=== PATIENT | female | born 1965 | race Caucasian/White ===

== ENCOUNTER 2017-08-09 12:03 | Emergency (ER) | payer BC ==
[2017-08-09] MEDS ORDERED: NS 0.9% 1000 ML* 3,000 ML IV ONE (13:58)
[2017-08-09] MEDS ORDERED: Vancomycin(*) 1,500 MG in NS 0.9% 250 ML* 250 ML IVPB ONE (13:58)
[2017-08-09] MEDS ORDERED: cefTRIAXone(*) 1 GM in NS 0.9% 50 ML* 50 ML IVPB ONE (13:59)
[2017-08-09] MEDS ORDERED: Ketorolac INJ* 30 MG/ML 1 ML VIAL IV PUSH ONE (13:59)
[2017-08-09] MEDS ORDERED: Morphine INJ* 4 MG/ML 1 ML CARPUJECT IV ONE ×2 (13:59→17:56)
[2017-08-09 14:25] LABS: ABS Basophils 0.1 10^3/ul (0-0.2); ABS Eosinophils 0 10^3/ul (0-0.6); ABS Monocytes 0.5 10^3/ul (0-0.8); ABS Neutrophils 4.1 10^3/ul (1.5-7.7); ABS Nucleated RBC 0 10^3/ul; Eosinophil % 0.4 % (0-6); Hematocrit 39 % (35-47); Hemoglobin 13.2 g/dl (12.0-16.0); Lymphocyte % 30.5 % (25-47); Mean Corpuscular HGB Conc 34 g/dl (31-36); Mean Corpuscular Hemoglobin 29 pg (27-31); Mean Corpuscular Volume 87 fL (80-97); Mean Platelet Volume 8 um3 (7.4-10.4); Nucleated Red Blood Cells % 0.1; Platelet Count 240 10^3/ul (150-450); Red Blood Count 4.54 10^6/ul (4.0-5.4); Red Cell Distribution Width 13 % (10.5-15); White Blood Count 6.6 10^3/ul (3.5-10.8)
[2017-08-09 14:40] LABS: INR 0.92 (0.77-1.02)
[2017-08-09 14:41] LABS: EGFR Non-African American 56.9 (>60)
[2017-08-09] MEDS ORDERED: Iohexol 300* (CONTRAST) 10 ML SDV IV ONE (14:46)
--- NOTE | 2017-08-09 15:16 | RAD ---
HISTORY: Orbital cellulitis, swelling, diplopia COMPARISONS: None relevant TECHNIQUE: Multiple contiguous axial CT scans were obtained of the face with intravenous contrast, with coronal and sagittal multiplanar reformations. FINDINGS: BONES: There is slightly displaced fracture of the inferior orbital wall measuring 0.4 cm. There is herniation of orbital fat through the fracture defect. ORBITS: There is mild left proptosis. There is stranding of the preorbital fat. There is post septal and intraconal extension along the inferior rectus muscle. There is no loculated fluid collection. The left inferior rectus muscle is edematous. The superior ophthalmic veins are patent and symmetric. PARANASAL SINUSES: There is mucosal thickening of the left maxillary sinus. BRAIN AND SOFT TISSUE: Unremarkable. OTHER: None. IMPRESSION: 1. LEFT PREORBITAL AND ORBITAL CELLULITIS. NO LOCULATED FLUID COLLECTION TO SUGGEST ABSCESS. 2. SLIGHTLY DISPLACED FRACTURE OF THE INFERIOR ORBITAL WALL ON THE LEFT.
[2017-08-09 15:58] LABS: Urine Appearance Clear; Urine Blood Negative (Negative); Urine Color Straw; Urine Ketones Negative (Negative); Urine Protein Negative (Negative); Urine Specific Gravity 1.011 (1.010-1.030); Urine Urobilinogen Negative (Negative)
[2017-08-09] MEDS ORDERED: Dexamethasone IV* 4 MG/ML 1 ML (4 MG) IV SLOW PU ONE (16:02)
--- NOTE | 2017-08-09 17:45 | ED ---
Qian Kumar Emily, scribed for Eduardo Nj MD on 08/09/17 at 1356 . Throat Pain/Nasal Congestion - HPI Summary HPI Summary: This patient is a 52 year old F presenting to [facility] accompanied by family with a chief complaint of L eye swelling that began yesterday. Pt reports symptoms worsening this morning. The patient rates the pain 6/10 in severity. Symptoms aggravated by nothing. Symptoms alleviated by nothing. Patient reports diplopia , L eye pain, blurred vision, fever, and chills. Pt denies facial paralysis and facial droop. Pt reports seeing Dr. Salinas for the swelling yesterday, and was started on Augmentin. Pt was referred to [facility] by Dr. Salinas this morning. - History of Current Complaint Chief Complaint: EDEyeProblem Time Seen by Provider: 08/09/17 13:48 Hx Obtained From: Patient Onset/Duration: Sudden Onset, Lasting Days, Worse Since - This morning Severity: Moderate - Allergies/Home Medications Allergies/Adverse Reactions: Allergies Allergy/AdvReac Type Severity Reaction Status Date / Time Lamotrigine [From Lamictal] Allergy Rash Verified 07/29/16 11:59 Penicillins Allergy Rash Verified 07/29/16 11:59 bee venom Allergy Hives Uncoded 07/29/16 11:59 PMH/Surg Hx/FS Hx/Imm Hx Previously Healthy: No Musculoskeletal History: Denies: Hx Scoliosis Sensory History: Reports: Other Sensory Impairments - Diplopia Neurological History: Reports: Hx Headaches Denies: Other Neuro Impairments/Disorders - Cancer History Hx Chemotherapy: No Hx Radiation Therapy: No - Surgical History Surgery Procedure, Year, and Place: Silent sinus syndrome surgery in 2003 Infectious Disease History: No Infectious Disease History: Denies: Traveled Outside the [place] in Last 30 Days - Family History Known Family History: Positive: None - Social History Occupation: Employed Full-time Lives: With Family Alcohol Use: Rare Substance Use Type: Reports: None Smoking Status (MU): Heavy Every Day Tobacco Smoker Review of Systems Positive: Fever, Chills Positive: Blurred Vision, Diplopia, Erythema, Other - Positive L eye pain Negative: Sore Throat Negative: Chest Pain Negative: Shortness Of Breath, Cough Negative: Abdominal Pain, Vomiting, Nausea Negative: dysuria, hematuria Negative: Myalgia, Edema Negative: Rash Neurological: Other - Negative facial paralysis, facial droop, and dizziness All Other Systems Reviewed And Are Negative: Yes Physical Exam - Summary Physical Exam Summary: Constitutional: Well-developed, Well-nourished, Alert. (-) Distressed Skin: Warm, Dry HENT: Normocephalic; Atraumatic Eyes: Chemosis on the temporal aspect of the conjunctiva of the L eye. Erythema and swelling mainly infraorbital, supraorbital as well, and upper eyelid. Pain with rightward gaze Neck: Musculoskeletal ROM normal neck. (-) JVD, (-) Stridor, (-) Tracheal deviation Cardio: Rhythm regular, rate normal, Heart sounds normal; Intact distal pulses; The pedal pulses are 2+ and symmetric. Radial pulses are 2+ and symmetric. (-) Murmur Pulmonary/Chest wall: Effort normal. (-) Respiratory distress, (-) Wheezes, (-) Rales Abd: Soft, (-) Tenderness, (-) Distension, (-) Guarding, (-) Rebound Musculoskeletal: (-) Edema Lymph: (-) Cervical adenopathy Neuro: Alert, Oriented x3 Psych: Mood and affect Normal Triage Information Reviewed: Yes Vital Signs On Initial Exam: Initial Vitals Temp Pulse Resp BP Pulse Ox 97.9 F 72 16 136/84 100 08/09/17 12:23 08/09/17 12:23 08/09/17 12:23 08/09/17 12:23 08/09/17 12:23 Vital Signs Reviewed: Yes - [place] Coma Scale Coma Scale Total: 15 Diagnostics - Vital Signs Vital Signs Temp Pulse Resp BP Pulse Ox 08/09/17 12:23 97.9 F 72 16 136/84 100 - Laboratory Lab Results: Lab Results 08/09/17 08/09/17 08/09/17 Range/Units 14:10 14:10 14:10 WBC 6.6 (3.5-10.8) 10^3/ul RBC 4.54 (4.0-5.4) 10^6/ul Hgb 13.2 (12.0-16.0) g/dl Hct 39 (35-47) % MCV 87 (80-97) fL MCH 29 (27-31) pg MCHC 34 (31-36) g/dl RDW 13 (10.5-15) % Plt Count 240 (150-450) 10^3/ul MPV 8 (7.4-10.4) um3 Neut % (Auto) 61.2 (38-83) % Lymph % (Auto) 30.5 (25-47) % [place] % (Auto) 7.1 (1-9) % Eos % (Auto) 0.4 (0-6) % Baso % (Auto) 0.8 (0-2) % Absolute Neuts (auto) 4.1 (1.5-7.7) 10^3/ul Absolute Lymphs (auto) 2.0 (1.0-4.8) 10^3/ul Absolute Monos (auto) 0.5 (0-0.8) 10^3/ul Absolute Eos (auto) 0 (0-0.6) 10^3/ul Absolute Basos (auto) 0.1 (0-0.2) 10^3/ul Absolute Nucleated RBC 0 10^3/ul Nucleated RBC % 0.1 INR (Anticoag Therapy) 0.92 (0.77-1.02) APTT 36.8 H (26.0-36.3) seconds Sodium 133 (133-145) mmol/L Potassium 4.5 (3.5-5.0) mmol/L Chloride 105 (101-111) mmol/L Carbon Dioxide 21 L (22-32) mmol/L Anion Gap 7 (2-11) mmol/L BUN 22 (6-24) mg/dL Creatinine 1.02 H (0.51-0.95) mg/dL Est GFR ( Amer) 73.2 (>60) Est GFR (Non-Af Amer) 56.9 (>60) BUN/Creatinine Ratio 21.6 H (8-20) Glucose 82 (70-100) mg/dL Lactic Acid (0.5-2.0) mmol/L Calcium 9.7 (8.6-10.3) mg/dL Total Bilirubin 0.40 (0.2-1.0) mg/dL AST 31 (13-39) U/L ALT 35 (7-52) U/L Alkaline Phosphatase 31 L (34-104) U/L Troponin I 0.00 (<0.04) ng/mL Total Protein 7.3 (6.4-8.9) g/dL Albumin 4.2 (3.2-5.2) g/dL Globulin 3.1 (2-4) g/dL Albumin/Globulin Ratio 1.4 (1-3) Urine Color Urine Appearance Urine pH (5-9) Ur Specific [place] (1.010-1.030) Urine Protein (Negative) Urine Ketones (Negative) Urine Blood (Negative) Urine Nitrate (Negative) Urine Bilirubin (Negative) Urine Urobilinogen (Negative) Ur Leukocyte Esterase (Negative) Urine Glucose (Negative) 08/09/17 08/09/17 Range/Units 14:17 15:37 WBC (3.5-10.8) 10^3/ul RBC (4.0-5.4) 10^6/ul Hgb (12.0-16.0) g/dl Hct (35-47) % MCV (80-97) fL MCH (27-31) pg MCHC (31-36) g/dl RDW (10.5-15) % Plt Count (150-450) 10^3/ul MPV (7.4-10.4) um3 Neut % (Auto) (38-83) % Lymph % (Auto) (25-47) % [place] % (Auto) (1-9) % Eos % (Auto) (0-6) % Baso % (Auto) (0-2) % Absolute Neuts (auto) (1.5-7.7) 10^3/ul Absolute Lymphs (auto) (1.0-4.8) 10^3/ul Absolute Monos (auto) (0-0.8) 10^3/ul Absolute Eos (auto) (0-0.6) 10^3/ul Absolute Basos (auto) (0-0.2) 10^3/ul Absolute Nucleated RBC 10^3/ul Nucleated RBC % INR (Anticoag Therapy) (0.77-1.02) APTT (26.0-36.3) seconds Sodium (133-145) mmol/L Potassium (3.5-5.0) mmol/L Chloride (101-111) mmol/L Carbon Dioxide (22-32) mmol/L Anion Gap (2-11) mmol/L BUN (6-24) mg/dL Creatinine (0.51-0.95) mg/dL Est GFR ( Amer) (>60) Est GFR (Non-Af Amer) (>60) BUN/Creatinine Ratio (8-20) Glucose (70-100) mg/dL Lactic Acid 0.8 (0.5-2.0) mmol/L Calcium (8.6-10.3) mg/dL Total Bilirubin (0.2-1.0) mg/dL AST (13-39) U/L ALT (7-52) U/L Alkaline Phosphatase (34-104) U/L Troponin I (<0.04) ng/mL Total Protein (6.4-8.9) g/dL Albumin (3.2-5.2) g/dL Globulin (2-4) g/dL Albumin/Globulin Ratio (1-3) Urine Color Straw Urine Appearance Clear Urine pH 5.0 (5-9) Ur Specific [place] 1.011 (1.010-1.030) Urine Protein Negative (Negative) Urine Ketones Negative (Negative) Urine Blood Negative (Negative) Urine Nitrate Negative (Negative) Urine Bilirubin Negative (Negative) Urine Urobilinogen Negative (Negative) Ur Leukocyte Esterase Negative (Negative) Urine Glucose Negative (Negative) Result Diagrams: 08/09/17 14:10 08/09/17 14:10 Lab Statement: Any lab studies that have been ordered have been reviewed, and results considered in the medical decision making process. - CT CT Orbit CT Interpretation Completed By: Radiologist - CT Orbit reveals, per radiologist , 1. Left preorbital cellulitis. No loculated fluid collection to suggest abscess. 2. Slightly displaced fracture of the inferior orbital wall on the left. ED physician has reviewed this radiology report. Re-Evaluation - Re-Evaluation First Eval Re-Evaluation Time: 15:20 Change: Unchanged Comment: Checked pupillary constriction. Pupils are nonreactive at 2 mm bilaterally. EENT Course/Dx - Course Assessment/Plan: Orbital cellulitis with involvement of the inferior rectus muscle. Transfer out due to orbital cellulitis being secondary to sinus hardware. Per our tape folding machine operator she may require an orbital subspecialist, which is only available at [facility]. - Diagnoses Provider Diagnoses: Orbital cellulitis on left - Provider Notifications Discussed Care Of Patient With: Jon Salinas Time Discussed With Above Provider: 15:34 Instructed by Provider To: Other - Consult with Dr. Salinas (tape folding machine operator) at 0853. He recommended transfer to [place]. Consult with Dr. Evans (ENT) at 1545. Recommends 16 mg of IV decadron. He recommends pt be transferred to [facility]. Consult with Dr. Moreno (tape folding machine operator) at 1603. Her intraocular pressure was 30 today, 19 yesterday. Was given a dose of ocular diuretics. Had a normal funduscopic exam today in the office. Consult with Dr. Salinas (tape folding machine operator) at 1633. He recommends pt be transferred to [facility]. Discharge - Discharge Plan Condition: Good Disposition: TRANS HIGHER LVL OF CARE FAC Referrals: Joanne Goldberg MD [Primary Care Provider] - The documentation as recorded by the Qian gonzalez Emily accurately reflects the service I personally performed and the decisions made by me, Eduardo Nj MD.
[2017-08-09 17:47] VITALS: BP 123/85
[2017-08-09] MEDS ORDERED: Morphine INJ* 4 MG/ML 1 ML CARPUJECT ONE (17:59)
== END 2017-08-09 18:11 | disposition short-term general hospital (02) ==
LOC: ED 12:03
DX: H05.012 Cellulitis of left orbit (principal); F17.200 Nicotine dependence, unspecified, uncomplicated; Z88.0 Allergy status to penicillin; Z88.8 Allergy status to other drugs, medicaments and biological substances
CPT/HCPCS: 36415; 70481; 80053; 81003; 83605; 84484; 85025; 85610; 85730; 87040; 96361; 96365; 96366; 96375; 96376; 99283; J0696; J1100; J1885; J2270; J3370; Q9967

== ENCOUNTER 2017-11-11 14:13 | Emergency (ER) | payer BC ==
--- OUTSIDE RECORDS SUMMARY | 2017-11-11 14:27 | XMS REPORT ---
:1965 External Reference #:[id number] Author Organization [facility] Address [address] [place] [address] Phone [phone] Care Team Providers Name Role Phone Joanne Goldberg MD Primary Care Physician Unavailable Payers Type Date Identification Numbers Payment Provider Subscriber Commercial Effective: Policy Number: [id number] BS Facets Shira Mellissa 2017 PayID: [id number] [address] [address] [place] [address] Commercial Policy Number: [id number] Lifetime Benefit Solution Joanne Vásquez PayID: [id number] [address] [place] [address] Problems Date Description Provider Status Onset: 07/06/2010 Bipolar I disorder Joanne Goldberg M.D. Active Onset: 07/06/2010 Hyperlipidemia Joanne Goldberg M.D. 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[employer], now disabled/retired for medical reasons ETOH Use Denies alcohol use Smoking Patient is a current smoker, 3/4 PPD smokes every day Exercise Type/Frequency Exercises sporadically General Hx Text Health Care Proxy: partner Shira Malloy Sexual Hx text SSP Allergies, Adverse Reactions, Alerts Date Description Reaction Status Severity Comments 05/20/2011 Benadryl restless legs active Mild to Moderate 09/30/2013 Cephalexin active Rash 07/05/2010 Lamictal Urticaria inactive Severe Medications Medication Date Status Form Strength Qnty SIG Indications Ordering Provider Baclofen 10/30 Active Tablets 10mg 30tab take 1/2 tab M54.9 Kj s every 8 Oliver, [employer] WORK[employer] hours as needed for muscle spasm Amoxicillin/Cl 10/30 Hx Tablets 875-125mg 20tab take one J06.9 Kj avulanate s tablet q12 Oliver, [employer]PL[employer] WORK[employer] Potassium - hours for 10 Tramadol HCL 10/30 Active Tablets 50mg 30tab 1-2 tablets M54.9 Kj s every 12 Oliver, [employer]PL[employer] WORK[employer] hours as needed for pain. Atorvastatin 04/18 Active Tablets 10mg 30tab 1 by mouth E78.00 Azul Calcium s every night Varn, N.P. Levothyroxine 04/18 Active Tablets 137mcg 30tab take one E03.9 Azul Sodium s tablet by Varn, N.P. mouth one time daily Nystatin 04/15 Active Powder [id number] 30gm now B37.2 t/GM prn---apply Varn, N.P. twice daily until rash clears Propranolol 12/25 Active Caps ER 80mg 30cap take 1 Azul HCL ER /2014 24HR s capsule by Varn, N.P. mouth every day Tricor 01/26 Active Tablets 145mg 30tab take one s tablet by Varn, N.P. mouth once daily Epipen 2-Ld 11/10 Active Solution 0.3mg/0.3 2unit 1 sc as E906.4 Auto-Inject ML s needed Varn, N.P. Clobetasol 05/21 Active Cream 0.05% 30uni apply to ts affected Varn, N.P. area(s) as needed Lovaza 05/21 Active Capsules 1gm 120ca take 2 ps capsules by Varn, N.P. mouth two times daily Metrogel Active Gel 1% 60gm apply once Unknown /0000 daily as needed Seroquel Active 50mg 2-4 tablet Unknown / qhs Clomipramine Active Capsules 50mg 2 po qd Unknown HCL Clonazepam Active Tablets 1mg 1 by mouth Unknown tid as needed Lamotrigine Active Tablets 100mg one tab at [place], /0000 hs Marisol Jones MD Naproxen 07/04 Hx Tablets 500mg 14tab 1 tablet Kj s with food by MAN Boyd - mouth twice 10/30 a day /2017 Hydrocodone-Ac 07/04 Hx Tablets 5-325mg 30tab take 1-2 S16.1xxA Kj etaminophen s tablets MAN Boyd - every 8 04/12 hours for pain. Fluconazole 11/16 Hx Tablets 150mg 2tabs one by mouth 616.10 November repeat Varn, N.P. - in 3 days as 11/17 needed Fluconazole 10/04 Hx Tablets 150mg 2tabs one by mouth November repeat Varn, N.P. - in 3 days as 11/17 Hydrocodone/Ac 09/30 Hx Tablets 5-325mg 60tab 1-2 tablets 054.19 Joanne etaminophen s every 4 Cotton, - hours as M.D. 10/26 needed Cephalexin 09/28 Hx Capsules 500mg 21cap 1 po tid for 686.9 s 7 days Varn, N.P. - 09/30 Valtrex 09/28 Hx Tablets 1gm 20tab take one po 686.9 s bid for 10 Varn, N.P. - days 10/08 Hydrocodone/Ac 09/25 Hx Tablets 5-325mg 40tab 1 tablet Joanne etaminophen s every 4 Cotton, - hours as M.D. 08/08 needed Cymbalta 09/[address] 30mg 3 po qd Joanne /2013 Part Cotton, - M.D. 04/18 Fenofibrate 08/23 Hx Tablets 145mg 30tab Take One Joanne /2013 s Tablet By Cotton, - Mouth Every M.D. Relpax 04/13 Hx Tablets 40mg 12tab take 1 po Rissa s serena Cheng, - migraine, M.D. 09/28 after 2 hours Cymbalta 11/[address] 60mg 1 1/2 po qd Joanne /2012 Part Yusuf - M.DApolinar 09/24 Hydroxyzine 11/10 Hx Tablets 25mg 30tab take one by E906.4 Joanne HCL s mouth every Cotton, - 6 hours as M.D. 09/28 needed Metronidazole 05/20 Hx Gel 0.75% 60gm apply at 704.8 Ryann bedtime to Shanita, - affected M.D., FACP 07/19 areas Triamcinolone 04/09 Hx Cream 0.1% 30gm apply bid 782.1 Joanne Acetonide until clear Yusuf - M.DApolinar 09/23 Nicotrol 12/03 Hx Inhaler 10mg 168un Use 6-16 per Joanne Inhaler /2010 its day Yusuf - M.Jessica 09/23 Zithromax 10/01 Hx Tablets 250mg 1Pack two po Joanne Z-Ld /2010 initially Yusuf, - then one po M.D. 10/11 daily /2010 Fluticasone 10/01 Hx Suspension 50mcg/Act 1Mont 1 spray each Joanne Propionate /2010 h nostril Yusuf, - daily as M.D. 10/11 needed Cymbalta 07/06 Hx Caps 30mg 4 tablets Part once daily Yusuf, - M.DApolinar 11/10 Tricor 03/13 Hx Tablets 145mg 30tab Take One s Tablet By Cotton, - Mouth Every M.D. Cymbalta Hx Caps 60mg 60cap 1 by mouth Unknown /0000 Part s once daily - 07/06 Octa Hx Tablets ER 450mg 1 Unknown Carbonate ER /0000 alternating - with 2 05/20 tablets daily Cogentin Hx Solution 25mg 1 daily as Unknown /0000 needed - 07/06 Restoril Hx Capsules 15mg 1-2 tablets Unknown /0000 at bedtime - as needed 08/08 Propranolol Hx Tablets 80mg 30tab 1 by mouth Azul HCL / s once daily Varn, N.P. - 12/25 Synthroid Hx Tablets 100mcg 90tab 1 by mouth Unknown /0000 s once daily - 08/08 Cytomel 00 Hx Tablets 5mcg 1 by mouth Unknown /0000 bid - 09/23 Buspar Hx Tablets 30mg 1 tablet Unknown /0000 twice a day - 06/25 Imitrex Hx Tablets 100mg 9tabs q2h prn mdd2 Unknown /0000 - 09/23 Abilify Hx Tablets 7mg 30tab 1 po qd Unknown /0000 s - 07/19 Liothyronine Hx Tablets 25mcg 1 po bid Unknown Sodium /0000 - 08/[address] 40mg 30cap once daily Unknown /0000 s - 10/26 Klonopin Hx Tablets 0.5mg 10tab 1-4 daily Unknown /0000 s prn - 08/08 Relpax Hx Tablets 40mg 9tabs 1 po qd prn Unknown /0000 - 04/20 Zofran Hx Tablets 4mg 12tab 1 q 6 hours Unknown /0000 s prn nausea - 09/28 Hydrocodone Hx Tablets 5-325mg 60tab 1 tablet by Unknown Bitartrate/[place] /0000 s mouth every taminophen - 6 hours as 04/20 Benztropine Hx Tablets 0.5mg 30tab 1 po bid prn Unknown Mesylate /0000 s - 04/20 Octa Hx Capsules 300mg 60cap 1 po in the Unknown Carbonate /0000 s morning and - 2 at night 08/08 Lithobid Hx Tablets ER 300mg no longer Unknown /0000 taking----1 - PO tid 07/04 Synthroid Hx Tablets 125mcg 1 po qd Unknown /0000 - 04/18 Cytomel Hx Tablets 5mcg 1 PO bid Unknown / - 04/18 Ativan Hx Tablets 1mg 10tab 1 po q 4 hr Unknown /0000 s prn anxiety - 09/28 Nortriptyline Hx Capsules 50mg 1 PO QHS Unknown HCL /0000 - 09/28 Donepezil HCL 00/00 Hx Tablets 5mg 1 po qd Unknown /0000 - 10/19 Mirtazapine 00 Hx Tablets 15mg take 1 Unknown /0000 tablet by - mouth before 04/18 Immunizations CPT Code Status Date Vaccine Lot # [id number] Given 04/01/2017 Influenza Virus Vaccine, Quadrivalent, Split, Preservative Free [id number] Given 04/13/2015 Influenza Virus Vaccine, Quadrivalent, Split, [id number] Preservative Free [id number] Given 04/20/2012 Fluzone Vaccine [id number] Given 09/24/2011 Pneumonia Vaccine [id number] Given 05/18/2009 Tdap - Tetanus/Diptheria/Acellular Pertussis 64864 Given 06/15/2008 Influenza Virus 3Yrs & Over [id number] Given 06/15/2008 Influenza Virus 3Yrs & Over 66856 Given 06/09/2007 Influenza Virus 3Yrs & Over Vital Signs Date Vital Result Comment 10/30/2017 Weight 208.00 lb Heart Rate 85 /min BP Systolic 118 mmHg BP Diastolic 72 mmHg Body Temperature 97.5 F O2 % BldC Oximetry 97 % 08/28/2017 Weight 202.75 lb Heart Rate 65 /min BP Systolic 126 mmHg BP Diastolic 82 mmHg Body Temperature 98.0 F O2 % BldC Oximetry 98 % 07/04/2017 Weight 207.00 lb Heart Rate 72 /min BP Systolic Sitting 120 mmHg BP Diastolic Sitting 78 mmHg Body Temperature 97.8 F O2 % BldC Oximetry 98 % 04/18/2017 Height 64.5 inches 5'4.50" Weight 204.25 lb Heart Rate 72 /min BP Systolic 126 mmHg BP Diastolic 70 mmHg Body Temperature 98.7 F O2 % BldC Oximetry 98 % BMI (Body Mass Index) 34.5 kg/m2 04/15/2016 Height 64 inches 5'4" Weight 203.00 lb Heart Rate 75 /min BP Systolic 77 mmHg BP Systolic Sitting 124 mmHg BP Diastolic Sitting 79 mmHg Body Temperature 98.1 F O2 % BldC Oximetry 99 % BMI (Body Mass Index) 34.8 kg/m2 06/22/2015 Height 64 inches 5'4" Weight 200.00 lb Heart Rate 76 /min BP Systolic Sitting 124 mmHg BP Diastolic Sitting 82 mmHg Respiratory Rate 15 /min Body Temperature 99.2 F O2 % BldC Oximetry 98 % BMI (Body Mass Index) 34.3 kg/m2 04/13/2015 Height 64 inches 5'4" Weight 200.75 lb Heart Rate 87 /min BP Systolic Sitting 129 mmHg BP Diastolic Sitting 80 mmHg Body Temperature 98.4 F BMI (Body Mass Index) 34.5 kg/m2 11/16/2014 Weight 206.00 lb Heart Rate 80 /min BP Systolic Sitting 116 mmHg BP Diastolic Sitting 73 mmHg Body Temperature 97.5 F O2 % BldC Oximetry 99 % 10/26/2014 Weight 204.00 lb Heart Rate 66 /min BP Systolic Sitting 108 mmHg BP Diastolic Sitting 63 mmHg Body Temperature 98.6 F O2 % BldC Oximetry 99 % 09/30/2013 Height 64.5 inches 5'4.50" Weight 198.00 lb Heart Rate 68 /min BP Systolic Sitting 122 mmHg BP Diastolic Sitting 84 mmHg Respiratory Rate 15 /min Body Temperature 96.8 F BMI (Body Mass Index) 33.5 kg/m2 09/28/2013 Weight 197.00 lb Heart Rate 66 /min BP Systolic Sitting 124 mmHg BP Diastolic Sitting 82 mmHg Respiratory Rate 14 /min 09/24/2012 Height 64 inches 5'4" Weight 192.75 lb Heart Rate 60 /min BP Systolic Sitting 100 mmHg BP Diastolic Sitting 64 mmHg BMI (Body Mass Index) 33.1 kg/m2 04/20/2012 Height 64 inches 5'4" Weight 198.00 lb Heart Rate 72 /min BP Systolic Sitting 128 mmHg BP Diastolic Sitting 80 mmHg BMI (Body Mass Index) 34.0 kg/m2 11/11/2011 Height 64 inches 5'4" Weight 201.00 lb Heart Rate 70 /min BP Systolic Sitting 122 mmHg BP Diastolic Sitting 74 mmHg BMI (Body Mass Index) 34.5 kg/m2 09/24/2011 Height 64 inches 5'4" Weight 194.00 lb Heart Rate 72 /min BP Systolic Sitting 118 mmHg BP Diastolic Sitting 64 mmHg BMI (Body Mass Index) 33.3 kg/m2 07/23/2011 Height 64 inches 5'4" Weight 202.00 lb Heart Rate 76 /min BP Systolic Sitting 120 mmHg BP Diastolic Sitting 74 mmHg Body Temperature 98.7 F BMI (Body Mass Index) 34.7 kg/m2 07/19/2011 Height 64 inches 5'4" Weight 204.00 lb Heart Rate 64 /min BP Systolic Sitting 120 mmHg BP Diastolic Sitting 68 mmHg Body Temperature 98.8 F BMI (Body Mass Index) 35.0 kg/m2 06/25/2011 Height 64 inches 5'4" Weight 204.00 lb Heart Rate 68 /min BP Systolic Sitting 122 mmHg BP Diastolic Sitting 70 mmHg BMI (Body Mass Index) 35.0 kg/m2 05/20/2011 Height 64 inches 5'4" Weight 203.00 lb Heart Rate 68 /min BP Systolic Sitting 134 mmHg BP Diastolic Sitting 78 mmHg BMI (Body Mass Index) 34.8 kg/m2 04/09/2011 Height 64 inches 5'4" Weight 188.00 lb Heart Rate 72 /min BP Systolic Sitting 128 mmHg BP Diastolic Sitting 70 mmHg BMI (Body Mass Index) 32.3 kg/m2 10/01/2010 Weight 190.75 lb Heart Rate 72 /min BP Systolic 98 mmHg BP Diastolic 62 mmHg 07/06/2010 Weight 192.00 lb Heart Rate 62 /min BP Systolic 106 mmHg BP Diastolic 70 mmHg Results Test Date Test Result H/L Range Note Urinalysis Profile 08/09/2017 Urine Color Straw Urine Appearance Clear Urine Specific [place] 1.011 1.010-1.030 Urine pH 5.0 5-9 Urine Urobilinogen Negative Negative Urine Ketones Negative Negative Urine Protein Negative Negative Urine Leukocytes Negative Negative Urine Blood Negative Negative Urine Nitrite Negative Negative Urine Bilirubin Negative Negative Urine Glucose Negative Negative Laboratory test finding 08/09/2017 Lactic Acid 0.8 mmol/L 0.5-2.0 1 Blood Culture SEE RESULT BELOW 2 Comp Metabolic Panel 08/09/2017 Sodium 133 mmol/L 133-145 Potassium 4.5 mmol/L 3.5-5.0 Chloride 105 mmol/L 101-111 Co2 Carbon Dioxide 21 mmol/L Low 22-32 Anion Gap 7 mmol/L 2-11 Glucose 82 mg/dL 70-100 Blood Urea Nitrogen 22 mg/dL 6-24 Creatinine 1.02 mg/dL High 0.51-0.95 BUN/Creatinine Ratio 21.6 High 8-20 Calcium 9.7 mg/dL 8.6-10.3 Total Protein 7.3 g/dL 6.4-8.9 Albumin 4.2 g/dL 3.2-5.2 Globulin 3.1 g/dL 2-4 Albumin/Globulin Ratio 1.4 1-3 Total Bilirubin 0.40 mg/dL 0.2-1.0 Alkaline Phosphatase 31 U/L Low 34-104 Alt 35 U/L 7-52 Ast 31 U/L 13-39 Egfr Non- 56.9 >60 Egfr 73.2 >60 3 Laboratory test finding 08/09/2017 Troponin-I (TnI) 0.00 ng/mL <0.04 CBC Auto Diff 08/09/2017 White Blood Count 6.6 10^3/uL 3.5-10.8 Red Blood Count 4.54 10^6/uL 4.0-5.4 Hemoglobin 13.2 g/dL 12.0-16.0 Hematocrit 39 % 35-47 Mean Corpuscular Volume 87 fL 80-97 Mean Corpuscular Hemoglobin 29 pg 27-31 Mean Corpuscular HGB Conc 34 g/dL 31-36 Red Cell Distribution Width 13 % 10.5-15 Platelet Count 240 10^3/uL 150-450 Mean Platelet Volume 8 um3 7.4-10.4 Abs Neutrophils 4.1 10^3/uL 1.5-7.7 Abs Lymphocytes 2.0 10^3/uL 1.0-4.8 Abs Monocytes 0.5 10^3/uL 0-0.8 Abs Eosinophils 0 10^3/uL 0-0.6 Abs Basophils 0.1 10^3/uL 0-0.2 Abs Nucleated RBC 0 10^3/uL Granulocyte % 61.2 % 38-83 Lymphocyte % 30.5 % 25-47 Monocyte % 7.1 % 1-9 Eosinophil % 0.4 % 0-6 Basophil % 0.8 % 0-2 Nucleated Red Blood Cells % 0.1 Inr/Protime 08/09/2017 Inr 0.92 0.77-1.02 Laboratory test finding 08/09/2017 Partial Thrombo Time 36.8 seconds High 26.0-36.3 PTT Blood Culture SEE RESULT BELOW 4 Laboratory test 04/11/2017 TSH (Thyroid Stim Horm) 5.98 mcIU/mL High 0.34- 5.60 5 finding Lipid Profile 04/11/2017 Triglycerides 320 mg/dL 6 (Trig/Chol/HDL) Cholesterol 230 mg/dL 7 HDL Cholesterol 25.3 mg/dL 8 LDL Cholesterol 141 mg/dL 9 Comp Metabolic Panel 04/11/2017 Sodium 136 mmol/L 133-145 Potassium 4.6 mmol/L 3.5-5.0 Chloride 106 mmol/L 101-111 Co2 Carbon Dioxide 26 mmol/L 22-32 Anion Gap 4 mmol/L 2-11 Glucose 106 mg/dL High 70-100 Blood Urea Nitrogen 17 mg/dL 6-24 Creatinine 1.12 mg/dL High 0.51-0.95 BUN/Creatinine Ratio 15.2 8-20 Calcium 9.8 mg/dL 8.6-10.3 Total Protein 7.3 g/dL 6.4-8.9 Albumin 4.0 g/dL 3.2-5.2 Globulin 3.3 g/dL 2-4 Albumin/Globulin Ratio 1.2 1-3 Total Bilirubin 0.40 mg/dL 0.2-1.0 Alkaline Phosphatase 35 U/L 34-104 Alt 47 U/L 7-52 Ast 26 U/L 13-39 Egfr Non- 51.1 >60 Egfr 65.7 >60 10 Total Protein 24HR Urine 04/19/2016 Urine Collection Time 24 Urine Total Volume 4800 mL Urine Random Total Protein < 6 mg/dL Urine Total Protein/24HR (SEE NOTE) mg/24Hr 0-165 11 Creatinine Clearance 04/19/2016 Urine Collection Time 24 Urine Total Volume 4800 mL Urine Random Creatinine 45.29 mg/dL Creatinine 1.39 mg/dL High 0.51-0.95 Creatinine Clearance 109 mL/min 88-128 Comp Metabolic Panel 04/11/2016 Sodium 136 mmol/L 133-145 Potassium 4.6 mmol/L 3.5-5.0 Chloride 108 mmol/L 101-111 Co2 Carbon Dioxide 23 mmol/L 22-32 Anion Gap 5 mmol/L 2-11 Glucose 102 mg/dL High 70-100 Blood Urea Nitrogen 25 mg/dL High 6-24 Creatinine 1.21 mg/dL High 0.51-0.95 BUN/Creatinine Ratio 20.7 High 8-20 Calcium 9.3 mg/dL 8.6-10.3 Total Protein 6.8 g/dL 6.4-8.9 Albumin 4.1 g/dL 3.2-5.2 Globulin 2.7 g/dL 2-4 Albumin/Globulin Ratio 1.5 1-3 Total Bilirubin 0.30 mg/dL 0.2-1.0 Alkaline Phosphatase 26 U/L Low 34-104 Alt 35 U/L 7-52 Ast 24 U/L 13-39 Egfr Non- 46.9 >60 Egfr 60.3 >60 12 Lipid Profile (Trig/Chol/HDL) 02/06/2016 Triglycerides 244 mg/dL 13 Cholesterol 225 mg/dL 14 HDL Cholesterol 27.5 mg/dL 15 LDL Cholesterol 149 mg/dL 16 Laboratory test finding 02/06/2016 Blood Urea Nitrogen BUN 18 mg/dL 6-24 Creatinine 02/06/2016 Creatinine 1.08 mg/dL High 0.51-0.95 Egfr Non- 53.7 >60 Egfr 69.1 >60 17 Laboratory test finding 02/06/2016 Octa 0.91 mmol/L 0.6-1.2 TSH (Thyroid Stim Horm) 2.30 mcIU/mL 0.34-5.60 Hemoglobin A1c (Glyco HGB) 5.8 % Less than 6.0 18 Reference Lab Test See Comment 19 Laboratory test finding 06/19/2015 Glucose 116 mg/dL High 70-100 20, 21 Hemoglobin A1c (Glyco HGB) 5.5 % Less than 6.0 20, 22 Alt (SGPT) 45 U/L 7-52 20, 23 Lipid Profile (Trig/Chol/HDL) 04/10/2015 Triglycerides 252 mg/dL 24 Cholesterol 233 mg/dL 25 HDL Cholesterol 30.3 mg/dL 26 LDL Cholesterol 152 mg/dL 27 Laboratory test finding 04/10/2015 TSH (Thyroid Stim Horm) 0.48 ?IU/mL 0.34-5.60 Comp Metabolic Panel 04/10/2015 Sodium 135 mmol/L 133-145 Potassium 4.3 mmol/L 3.5-5.0 Chloride 105 mmol/L 101-111 Co2 Carbon Dioxide 24 mmol/L 22-32 Anion Gap 6 mmol/L 2-11 Glucose 126 mg/dL High 70-100 Blood Urea Nitrogen 18 mg/dL 6-24 Creatinine 0.99 mg/dL High 0.51-0.95 BUN/Creatinine Ratio 18.2 8-20 Calcium 10.0 mg/dL 8.6-10.3 Total Protein 7.5 g/dL 6.4-8.9 Albumin 4.5 g/dL 3.2-5.2 Globulin 3.0 g/dL 2-4 Albumin/Globulin Ratio 1.5 1-3 Total Bilirubin 0.50 mg/dL 0.2-1.0 Alkaline Phosphatase 40 U/L 34-104 Alt 65 U/L High 7-52 Ast 34 U/L 13-39 Egfr Non- 59.4 >60 Egfr 76.4 >60 28 Laboratory test finding 11/16/2014 Cytology RUN DATE: 11/17/ <SEE NOTE&gt ; 29 HPV Rna W/ Reflex Genotype Negative Negative 30 Laboratory test finding 05/10/2014 Glucose 95 mg/dL 70-100 31, 32 Blood Urea Nitrogen 16 mg/dL 6-24 31, 33 Creatinine 05/10/2014 Creatinine 1.15 mg/dL High 0.51-0.95 31 Egfr Non- 50.2 >60 31 Egfr 64.5 >60 31, 34 Laboratory test finding 05/10/2014 Octa 0.64 mmol/L 0.6-1.2 31, 35 Clomipramine 05/10/2014 Clomipramine 73 ng/ml 70 - 200 31 Desmethylclomipramine 62 ng/ml 150 - 300 31, 36 Lipid Profile (Trig/Chol/HDL) 05/10/2014 Triglycerides 231 mg/dL 31, 37 Cholesterol 230 mg/dL 31, 38 HDL Cholesterol 31.1 mg/dL 31, 39 LDL Cholesterol 153 mg/dL 31, 40 Laboratory test finding 09/30/2013 Genital Culture (SEE NOTE) 41 HSV/VZV Derm PCR 09/30/2013 hs/VZ Source LABIA HSV 1 PCR Negative Negative HSV 2 PCR Negative Negative 42 Varicella Zoster Source LABIA Varicella Zoster Result Negative Negative 43 Herpes Simplex PCR 09/28/2013 Herpes Source left labia HSV 1 PCR Negative Negative HSV 2 PCR Negative Negative 44 Lipid Profile (Trig/Chol/HDL) 09/25/2013 Triglycerides 212 mg/dL 45 Cholesterol 207 mg/dL 46 HDL Cholesterol 35.3 mg/dL 47 LDL Cholesterol 129 mg/dL 48 Laboratory test finding 09/25/2013 Octa 0.79 mmol/L 0.6-1.2 Laboratory test finding 08/27/2013 Octa 1.4 mmol/L 0.5-1.5 Laboratory test finding 06/26/2013 Octa 1.0 mmol/L 0.5-1.5 Liver Function Panel 02/23/2013 Total Protein 6.5 g/dL 6.2-8.1 Albumin 4.0 g/dL 3.6-5.4 Globulin 2.5 g/dL 2-4 Albumin/Globulin Ratio 1.6 1-3 Total Bilirubin 0.7 mg/dL 0.4-1.5 Direct Bilirubin 0.1 mg/dL 0.1-0.5 Indirect Bilirubin 0.6 mg/dL 0.3-1.0 Alkaline Phosphatase 27 U/L Low 30-110 Alt 50 U/L 14-54 Ast 40 U/L 12-42 Laboratory test finding 02/23/2013 Octa 0.6 mmol/L 0.5-1.5 Blood Urea Nitrogen 15 mg/dL 6-24 Creatinine 02/23/2013 Creatinine 1.10 mg/dL 0.50-1.40 Egfr Non- 53.0 >60 Egfr 68.2 >60 49 Laboratory test finding 02/23/2013 Free T4 1.03 ng/mL 0.61-1.24 TSH (Thyroid Stimulating Horm) 0.91 miu/mL 0.34-5.60 Laboratory test 09/24/2012 Cytology RUN DATE: finding <SEE NOTE> Human Papilloma Virus 09/24/2012 Human Papillomavirus CERV Source Human Papillomavirus High Risk Negative Negative 51 Comp Metabolic Panel 08/31/2012 Sodium 139 mmol/L 133-145 Potassium 4.6 mmol/L 3.5-5.0 Chloride 110 mmol/L 101-111 Co2 Carbon Dioxide 22.0 mmol/L 22-32 Anion Gap 7.0 mmol/L 2-11 Glucose 98 mg/dL 70-100 Blood Urea Nitrogen 14 mg/dL 6-24 Creatinine 1.30 mg/dL 0.50-1.40 BUN/Creatinine Ratio 10.8 8-20 Calcium 9.8 mg/dL 8.1-9.9 Total Protein 7.2 g/dL 6.2-8.1 Albumin 4.0 g/dL 3.6-5.4 Globulin 3.2 g/dL 2-4 Albumin/Globulin Ratio 1.3 1-3 Total Bilirubin 1.0 mg/dL 0.4-1.5 Alkaline Phosphatase 17 U/L Low 30-110 Alt 59 U/L High 14-54 Ast 38 U/L 12-42 Egfr Non- 43.9 >60 Egfr 56.5 >60 52 Laboratory test 08/31/2012 TSH (Thyroid Stimulating 1.25 miu/mL 0.34- 5.60 53 finding Horm) Lipid Profile 08/31/2012 Triglycerides 179 mg/dL 40-200 (Trig/Chol/HDL) Cholesterol 174 mg/dL Less than 200 HDL Cholesterol 29 mg/dL Low 40-60 54 Cholesterol/HDL Ratio 6.0 Average High 1-4.44 LDL Cholesterol 109.2 mg/dL High Less Than 100 55 Comp Metabolic Panel 09/27/2011 Sodium 139 mmol/L 135-145 Potassium 4.7 mmol/L 3.5-5.0 Chloride 109 mmol/L 101-111 Co2 (Carbon Dioxide) 23.0 mmol/L 22-32 Anion Gap 7.0 mmol/L 2-11 56 Glucose 101 mg/dL High 70-100 BUN 17 mg/dL 6-24 Creatinine 1.0 mg/dL 0.50-1.40 One Over Creatinine 1.00 BUN/Creatinine Ratio 17.0 8-20 Calcium 10.1 mg/dL High 8.1-9.9 Total Protein 7.6 GM/DL 6.2-8.1 Albumin 4.0 GM/DL 3.6-5.4 Globulin 3.6 GM/DL 2-4 Albumin/Globulin Ratio 1.1 1-3 Bilirubin Total 0.9 mg/dL 0.4-1.5 57 Alkaline Phosphatase 45 U/L 30-110 Alt (SGPT) 71 U/L High 14-54 Ast (Sgot) 43 U/L High 12-42 eGFR Non- 59.7 > 60 eGFR 76.8 > 60 58 Laboratory test finding 09/27/2011 TSH 0.03 MIU/ML Low 0.34-5.60 Lipid Profile (Trig/Chol/HDL) 09/24/2011 Triglyceride 242 mg/dL High 40- 200 Cholesterol 208 mg/dL High Less Than 200 59 High Density Lipoprotein 22 mg/dL Low 40-60 60 Cholesterol/HDL Ratio 9.45 AVERAGE High 1-4.44 Low Density Lipoprotein 138 mg/dL High Less Than 100 61 Liver Function Panel 09/24/2011 Total Protein 7.7 GM/DL 6.2-8.1 Albumin 3.9 GM/DL 3.6-5.4 Globulin 3.8 GM/DL 2-4 Albumin/Globulin Ratio 1.0 1-3 Bilirubin Total 0.9 mg/dL 0.4-1.5 62 Bilirubin Direct 0.1 mg/dL 0.1-0.5 Indirect Bilirubin 0.8 mg/dL 0.3-1.0 63 Alkaline Phosphatase 46 U/L 30-110 Alt (SGPT) 75 U/L High 14-54 Ast (Sgot) 44 U/L High 12-42 Laboratory test finding 09/24/2011 Glucose 107 mg/dL High 70-100 CBC With Manual Diff 07/19/2011 White Blood Count 5.2 CUMM 4.8-10.8 Red Cell Count 5.09 CUMM 4.2-5.4 Hemoglobin 14.6 g/dL 12.0-16.0 Hematocrit 42 % 35-47 Mean Corpuscular Volume 83 um3 79-97 Mean Corpuscular Hemoglob 29 pg 27-31 Mean Corpuscular HGB Cone 34 g/dL 32-36 Redcell Distribution WDTH 12 % 10.5-15 Platelet Count 242 CUMM 150-450 Mean Platelet Volume 8.3 um3 7.4-10.4 Polysegmented Neutrophil 45 % 38-83 Lymphocyte 41 % 25-47 Monocyte 11 % 0-13 Eosinophil 3 % 0-6 Absolute Neutrophil Count 2.3 RBC Morphology NORMAL Comp Metabolic Panel 07/19/2011 Sodium 136 mmol/L 135-145 Potassium 4.8 mmol/L 3.5-5.0 Chloride 106 mmol/L 101-111 Co2 (Carbon Dioxide) 23.0 mmol/L 22-32 Anion Gap 7.0 mmol/L 2-11 64 Glucose 120 mg/dL High 70-100 BUN 22 mg/dL 6-24 Creatinine 0.8 mg/dL 0.50-1.40 One Over Creatinine 1.25 BUN/Creatinine Ratio 27.5 High 8-20 Calcium 9.6 mg/dL 8.1-9.9 Total Protein 6.7 GM/DL 6.2-8.1 Albumin 3.9 GM/DL 3.6-5.4 Globulin 2.8 GM/DL 2-4 Albumin/Globulin Ratio 1.4 1-3 Bilirubin Total 0.5 mg/dL 0.4-1.5 65 Alkaline Phosphatase 43 U/L 30-110 Alt (SGPT) 45 U/L 14-54 Ast (Sgot) 29 U/L 12-42 eGFR Non- 77.2 > 60 eGFR 99.3 > 60 66 Laboratory test finding 07/19/2011 Lyme Disease Serology Negative Negative 67 Erythrocyte Sed Rate 13 MM/HR 0-15 Monospot NEGATIVE Negative Lipid Profile (Trig/Chol/HDL) 09/20/2010 Triglyceride 159 mg/dL 40-200 Cholesterol 173 mg/dL Less Than 200 68 High Density Lipoprotein 29 mg/dL Low 40-60 69 Cholesterol/HDL Ratio 5.97 AVERAGE High 1-4.44 Low Density Lipoprotein 112 mg/dL High Less Than 100 70 Liver Function Panel 09/20/2010 Total Protein 6.5 GM/DL 6.2-8.1 Albumin 3.8 GM/DL 3.6-5.4 Globulin 2.7 GM/DL 2-4 Albumin/Globulin Ratio 1.4 1-3 Bilirubin Total 0.9 mg/dL 0.4-1.5 71 Bilirubin Direct 0.1 mg/dL 0.1-0.5 Indirect Bilirubin 0.8 mg/dL 0.3-1.0 72 Alkaline Phosphatase 38 U/L 30-110 Alt (SGPT) 50 U/L 14-54 Ast (Sgot) 39 U/L 12-42 Lipid Profile (Trig/Chol/HDL) 07/24/2010 Triglyceride 284 mg/dL High 40- 200 Cholesterol 209 mg/dL High Less Than 200 73 High Density Lipoprotein 21 mg/dL Low 40-60 74 Cholesterol/HDL Ratio 9.95 AVERAGE High 1-4.44 Low Density Lipoprotein 131 mg/dL High Less Than 100 75 Liver Function Panel 07/24/2010 Total Protein 6.5 GM/DL 6.2-8.1 Albumin 3.8 GM/DL 3.6-5.4 Globulin 2.7 GM/DL 2-4 Albumin/Globulin Ratio 1.4 1-3 Bilirubin Total 1.0 mg/dL 0.4-1.5 76 Bilirubin Direct 0.1 mg/dL 0.1-0.5 Indirect Bilirubin 0.9 mg/dL 0.3-1.0 77 Alkaline Phosphatase 38 U/L 30-110 Alt (SGPT) 69 U/L High 14-54 Ast (Sgot) 44 U/L High 12-42 Laboratory test finding 07/24/2010 Octa 0.8 mmol/L 0.5-1.5 Thyroxine Free 0.74 NG/ML 0.61-1.24 T3 Free 5.23 pg/mL 2.39-6.79 TSH 0.04 MIU/ML Low 0.34-5.60 Laboratory test finding 07/24/2010 GGTP 45 U/L 7-50 Laboratory test finding 06/01/2010 Octa 0.3 mmol/L Low 0.5-1.5 Thyroxine Free 0.67 NG/ML 0.61-1.24 T3 Free 4.55 pg/mL 2.39-6.79 TSH 0.04 MIU/ML Low 0.34-5.60 1 [facility] Severe Sepsis and Septic Shock Management Bundle Measure requires all lactic acids initially measuring >2.0 mmol/L be repeated. 2 SEE RESULT BELOW Name: JOANNE VÁSQUEZ : [address]: Eduardo Nj MD Acct: [id number] Unit: [id number] AGE: 52 Location: ED Re08/09/17 SEX: F Status: DEP ER SPEC: [id number] JULIETTE: 08/09/17 [facility] DR: Eduardo Nj MD REQ: [id number] RECD: 08/09/17 STATUS: JUAN WOO DR: Joanne Goldberg MD _ SOURCE: BLOOD,VENO SPDESC: ORDERED: Blood Cult Procedure Result Reported Site Aerobic Culture Bottle Final 08/14/17- 1424 ML No Growth Day 5 Anaerobic Culture Bottle Final 08/14/17- 1424 ML No Growth Day 5 * ML - MAIN LAB ([facility]) . END OF REPORT * ML=Testing performed at Main Lab DEPARTMENT OF PATHOLOGY, [address] [place] [address] Aramis Todd M.D. Director [facility] # [id number] 3 Because ethnic data is not always readily available, this report includes an eGFR for both -Americans and non- Americans. The National Kidney Disease Education Program (NKDEP) does not endorse the use of the MDRD equation for patients that are not between the ages of 18 and 70, are , have extremes of body size, muscle mass, or nutritional status, or are non- or non-. According to the National Kidney Foundation, irrespective of diagnosis, the stage of the disease is based on the level of kidney function: Stage Description GFR(mL/min/1.73 m(2)) 1 Kidney damage with normal or decreased GFR 90 2 Kidney damage with mild decrease in GFR 60-89 3 Moderate decrease in GFR 30-59 4 Severe decrease in GFR 15-29 5 Kidney failure <15 (or dialysis) 4 SEE RESULT BELOW Name: JOANNE VÁSQUEZ : [address]: Eduardo Nj MD Acct: [id number] Unit: [id number] AGE: 52 Location: ED Re08/09/17 SEX: F Status: DEP ER SPEC: [id number] JULIETTE: 08/09/[address]: Eduardo Nj MD REQ: [id number] RECD: 08/09/17 STATUS: JUAN WOO DR: Joanne Goldberg MD _ SOURCE: BLOOD,VENO SPDESC: ORDERED: Blood Cult Procedure Result Reported Site Aerobic Culture Bottle Final 08/14/17- 1418 ML No Growth Day 5 Anaerobic Culture Bottle Final 08/14/17- 1418 ML No Growth Day 5 * ML - MAIN LAB ([facility]) . END OF REPORT * ML=Testing performed at Main Lab DEPARTMENT OF PATHOLOGY, [address] [place] [address] Aramis Todd M.D. Director [facility] # [id number] 5 FASTING 10 HOUR 6 Desirable <150 Borderline high 150-199 High 200-499 Very High >500 7 Desirable <200 Borderline high 200-239 High >239 8 Low <40 Desirable: 40-60 High: >60 9 Desirable: <100 mg/dL Near Optimal: 100-129 mg/dL Borderline High: 130-159 mg/dL High: 160-189 mg/dL Very High: >189 mg/dL 10 Because ethnic data is not always readily available, this report includes an eGFR for both -Americans and non- Americans. The National Kidney Disease Education Program (NKDEP) does not endorse the use of the MDRD equation for patients that are not between the ages of 18 and 70, are , have extremes of body size, muscle mass, or nutritional status, or are non- or non-. According to the National Kidney Foundation, irrespective of diagnosis, the stage of the disease is based on the level of kidney function: Stage Description GFR(mL/min/1.73 m(2)) 1 Kidney damage with normal or decreased GFR 90 2 Kidney damage with mild decrease in GFR 60-89 3 Moderate decrease in GFR 30-59 4 Severe decrease in GFR 15-29 5 Kidney failure <15 (or dialysis) 11 Unable to calculate due to insufficient protein Unable to calculate due to insufficient protein 12 Because ethnic data is not always readily available, this report includes an eGFR for both -Americans and non- Americans. The National Kidney Disease Education Program (NKDEP) does not endorse the use of the MDRD equation for patients that are not between the ages of 18 and 70, are , have extremes of body size, muscle mass, or nutritional status, or are non- or non-. According to the National Kidney Foundation, irrespective of diagnosis, the stage of the disease is based on the level of kidney function: Stage Description GFR(mL/min/1.73 m(2)) 1 Kidney damage with normal or decreased GFR 90 2 Kidney damage with mild decrease in GFR 60-89 3 Moderate decrease in GFR 30-59 4 Severe decrease in GFR 15-29 5 Kidney failure <15 (or dialysis) 13 Desirable <150 Borderline high 150-199 High 200-499 Very High >500 14 Desirable <200 Borderline high 200-239 High >239 15 Low <40 Desirable: 40-60 High: >60 16 Desirable: <100 mg/dL Near Optimal: 100-129 mg/dL Borderline High: 130-159 mg/dL High: 160-189 mg/dL Very High: >189 mg/dL 17 Because ethnic data is not always readily available, this report includes an eGFR for both -Americans and non- Americans. The National Kidney Disease Education Program (NKDEP) does not endorse the use of the MDRD equation for patients that are not between the ages of 18 and 70, are , have extremes of body size, muscle mass, or nutritional status, or are non- or non-. According to the National Kidney Foundation, irrespective of diagnosis, the stage of the disease is based on the level of kidney function: Stage Description GFR(mL/min/1.73 m(2)) 1 Kidney damage with normal or decreased GFR 90 2 Kidney damage with mild decrease in GFR 60-89 3 Moderate decrease in GFR 30-59 4 Severe decrease in GFR 15-29 5 Kidney failure <15 (or dialysis) 18 Therapeutic target for the treatment of diabetes Mellitus patients is <7% HBA1C, and in selective patients <6.0%.Please refer to [place] [employer] Diabetic care guidelines for further information. 19 Test Result Flag Unit RefValue Clomipramine, S Clomipramine 81 ng/mL REFERENCE VALUE Not applicable Norclomipramine 58 ng/mL REFERENCE VALUE Not applicable Clomipramine + 139 L ng/mL 230-450 Norclomipramine Test Performed by: [place] [address] Returns Supervisor: Maurizio Shepherd II, M.D., Ph.D. 20 PT IS FASTING 12 HOURS 21 PT IS FASTING 12 HOURS 22 Therapeutic target for the treatment of diabetes Mellitus patients is <7% HBA1C, and in selective patients <6.0%.Please refer to [place] [employer] Diabetic care guidelines for further information. 23 PT IS FASTING 12 HOURS 24 Desirable <150 Borderline high 150-199 High 200-499 Very High >500 25 Desirable <200 Borderline high 200-239 High >239 26 Low <40 Desirable: 40-60 High: >60 27 Desirable: <100 mg/dL Near Optimal: 100-129 mg/dL Borderline High: 130-159 mg/dL High: 160-189 mg/dL Very High: >189 mg/dL 28 Because ethnic data is not always readily available, this report includes an eGFR for both -Americans and non- Americans. The National Kidney Disease Education Program (NKDEP) does not endorse the use of the MDRD equation for patients that are not between the ages of 18 and 70, are , have extremes of body size, muscle mass, or nutritional status, or are non- or non-. According to the National Kidney Foundation, irrespective of diagnosis, the stage of the disease is based on the level of kidney function: Stage Description GFR(mL/min/1.73 m(2)) 1 Kidney damage with normal or decreased GFR 90 2 Kidney damage with mild decrease in GFR 60-89 3 Moderate decrease in GFR 30-59 4 Severe decrease in GFR 15-29 5 Kidney failure <15 (or dialysis) 29 RUN DATE: 11/17/14 [facility] LAB LIVE PAGE 1 RUN TIME: [address] [place] [address] Specimen Inquiry Name: JOANNE VÁSQUEZ : [address]: Azul Kirkpatrick NP Acct: [id number] Unit: [id number] AGE: 49 Location: [facility] Re11/16/14 SEX: F Status: REG REF SPEC: [id number] JULIETTE: 11/16/14-[address]: Azul Kirkpatrick NP REQ: [id number] RECD: 11/16/14 STATUS: SOUT _ ORDERED: IMAGE ANALYSIS, HPV/Thin Prep, HPV 16/18 GENE FINAL DIAGNOSIS Negative for Intraepithelial lesion or Malignancy A. Ectocervical/Endocervical Specimen Adequacy: Satisfactory of evaluation Transformation zone component identified Patient Information: HPV: High risk HPV RNA testing regardless of pap results. HPV 16/18 Genotype for HPV pos Actual Specimen Date: 11/16/14 Last Menstrual Date: 10/21/14 ?: N Post Menopausal?: N Hysterectomy?: N Previous Abnormal Pap Smears?:N Date Time Test Result Flag (u) Normal Range 11/16/14 1522 HPV RNA RFLX GE Negative Negative The high-risk HPV types detected by the assay include: 16, 18, 31, 33, 35, 39, 45, 51, 52, 56, 58, 59, 66, and 68. Signed (signature on file) BLANCO Gutierrez (ASCP) 11/17 1516 This Pap test was evaluated with the assistance of the HeysanPrep Test Imaging System. Due to cytologic findings at the mortgage assistant microscope, comprehensive manual rescreening by a Automotive Professional may be required. The Pap Smear is a screening test designed to aid in the detection of premalignant and malignant conditions of the uterine cervix. It is not a diagnostic procedure and should not be used as the sole means of detecting cervical cancer. Both false- positive and false- negative reports do occur. Depending on your risk status, a Pap smear should be obtained and evaluated every 1-3 years. END OF REPORT * ML=Testing performed at Main Lab DEPARTMENT OF PATHOLOGY, [address] [place] [address] Aramis Todd M.D. Director [facility] # [id number] 30 The high-risk HPV types detected by the assay include: 16, 18, 31, 33, 35, 39, 45, 51, 52, 56, 58, 59, 66, and 68. 31 FASTING 32 FASTING 33 FASTING 34 Because ethnic data is not always readily available, this report includes an eGFR for both -Americans and non- Americans. The National Kidney Disease Education Program (NKDEP) does not endorse the use of the MDRD equation for patients that are not between the ages of 18 and 70, are , have extremes of body size, muscle mass, or nutritional status, or are non- or non-. According to the National Kidney Foundation, irrespective of diagnosis, the stage of the disease is based on the level of kidney function: Stage Description GFR(mL/min/1.73 m(2)) 1 Kidney damage with normal or decreased GFR 90 2 Kidney damage with mild decrease in GFR 60-89 3 Moderate decrease in GFR 30-59 4 Severe decrease in GFR 15-29 5 Kidney failure <15 (or dialysis) 35 FASTING 36 Desired clomipramine concentrations for the treatment of chronic pain: 20 - 85 ng/ml. Test Performed by: [facility] [address] [place] [address] 37 Desirable <150 Borderline high 150-199 High 200-499 Very High >500 38 Desirable <200 Borderline high 200-239 High >239 39 Low <40 Desirable: 40-60 High: >60 40 Desirable <100 Near Optimal 100-129 Borderline high 130-159 High 160-189 Very High >189 41 RUN DATE: 10/02/13 [facility] LAB LIVE PAGE 1 RUN TIME: [address] [place], [place] [address] Specimen Inquiry Name: JOANNE VÁSQUEZ : [address]: Joanne Goldberg MD Acct: [id number] Unit: [id number] AGE: 48 Location: [facility] Re09/30/13 SEX: F Status: REG REF SPEC: [id number] JULIETTE: 09/30/13-[address]: Joanne Goldberg MD REQ: [id number] RECD: 09/30/13 STATUS: COMP _ SOURCE: [facility]: ORDERED: Genital Culture QUERIES: Medent Number [id number] Procedure Result Verified Site Genital Culture Final 10/02/13- 1103 ML Organism 1 YEAST Quantity 1+ Organism 2 NORMAL JUNITO Quantity 3+ END OF REPORT * ML=Testing performed at Main Lab DEPARTMENT OF PATHOLOGY, [address] [place] [address] Aramis Todd M.D. Director [facility] Permit #[id number] 42 Analyte Specific Reagent: This test was developed and its performance characteristics determined by [facility]. It has not been cleared or approved by the U.S. Food and Drug Administration. 43 Laboratory developed test. Test Performed by: [place] [address] Returns Supervisor: Pancho Linares III, M.D. 44 Analyte Specific Reagent: This test was developed and its performance characteristics determined by [facility]. It has not been cleared or approved by the U.S. Food and Drug Administration. Test Performed by: [address] [address] Returns Supervisor: Pancho Linares III, M.D. 45 Desirable <150 Borderline high 150-199 High 200-499 Very High >500 46 Desirable <200 Borderline high 200-239 High >239 47 Low <40 Desirable: 40-60 High: >60 48 Desirable <100 Near Optimal 100-129 Borderline high 130-159 High 160-189 Very High >189 49 Because ethnic data is not always readily available, this report includes an eGFR for both -Americans and non- Americans. The National Kidney Disease Education Program (NKDEP) does not endorse the use of the MDRD equation for patients that are not between the ages of 18 and 70, are , have extremes of body size, muscle mass, or nutritional status, or are non- or non-. According to the National Kidney Foundation, irrespective of diagnosis, the stage of the disease is based on the level of kidney function: Stage Description GFR(mL/min/1.73 m(2)) 1 Kidney damage with normal or decreased GFR 90 2 Kidney damage with mild decrease in GFR 60-89 3 Moderate decrease in GFR 30-59 4 Severe decrease in GFR 15-29 5 Kidney failure <15 (or dialysis) 50 RUN DATE: 09/30/12 [facility] LAB LIVE PAGE 1 RUN TIME: [address] [place] [address] Specimen Inquiry Name: JOANNE VÁSQUEZ : [address]: Joanne Goldberg MD Acct: [id number] Unit: [id number] AGE: 47 Location: [facility] Re09/24/12 SEX: F Status: REG REF SPEC: [id number] JULIETTE: 09/24/12-[address]: Joanne Goldberg MD REQ: [id number] RECD: 03/07/13-1904 STATUS: SOUT _ ORDERED: IMAGE ANALYSIS, HPV / Thin Prep HiRisk Human Papilloma Virus test results received with preparation and diagnosis completed by [facility], [place], [place]. Results: NEGATIVE High Risk (for types 16, 18, 31, 33, 35, 39, 45, 51, 52, 56, 58, 59, 68) DiGene Hybrid Capture Specimen Transport Media or Cytyc ThinPrep PapTest PreservCyt Solution are the collection systems approved for use with this method by the U.S. Food and Drug Administration. Performance characteristics for AutoCyte (SurPath) collection device have been determined by Laboratory Medicine and Pathology , [facility], [place], [place]. It has not been cleared or approved by the U.S. Food and Drug Administration. Test Performed by: [facility] Dpt of lab Med and Pathology [address] [place] [address] Returns Supervisor: Pancho Linares III, M.D. Original hard copy report from [facility] is available upon request by calling Pathology at [phone]. Addendum Signed (signature on file) BLANCO Lala (ASCP) 09/30/12 0758 FINAL DIAGNOSIS Negative for Intraepithelial lesion or Malignancy COMMENTS: Specimen sent to [facility] in [place], [place] on 09/25/12. Results will be reported separately in an Addendum. A. Ectocervical/Endocervical Specimen Adequacy: CONTINUED ON NEXT PAGE * ML=Testing performed at Main Lab DEPARTMENT OF PATHOLOGY, [facility] [employer], [place] [address] Aramis Todd M.D. Director [facility] Permit #[id number] RUN DATE: 09/30/12 [facility] LAB LIVE PAGE 2 RUN TIME: 757 [facility] [email or web address] [place], [place] [address] Specimen Inquiry Patient: JOANNE VÁSQUEZ [id number] (Continued) CYTOLOGY ADEQ (Continued) Satisfactory of evaluation Transformation zone component identified Patient Information: HPV: High risk HPV DNA testing regardless of pap results. Actual Specimen Date: 09/24/12 Last Menstrual Date: 09/04/12 Spec Date if unknown: 2009 Cautery: N IUD: N Lesion, grossly demonstrate: N ?: N Post Menopausal?: N Hysterectomy?: N Previous Abnormal Pap Smears?:N Signed (signature on file) BLANCO Gutierrez (ASCP) 09/25 1423 This Pap test was evaluated with the assistance of the EQO Test Imaging System. Due to cytologic findings at the mortgage assistant microscope, comprehensive manual rescreening by a Automotive Professional may be required. The Pap Smear is a screening test designed to aid in the detection of premalignant and malignant conditions of the uterine cervix. It is not a diagnostic procedure and should not be used as the sole means of detecting cervical cancer. Both false- positive and false- negative reports do occur. Depending on your risk status, a Pap smear shoudl be obtained and evaluated every 1-3 years. END OF REPORT * ML=Testing performed at Main Lab DEPARTMENT OF PATHOLOGY, [address] [place] [address] Aramis Todd M.D. Director [facility] Permit #[id number] 51 For types 16, 18, 31, 33, 35, 39, 45, 51, 52, 56, 58, 59 and 68. Test Performed by: [address] [address] Returns Supervisor: Pancho Linares III, M.D. 52 Because ethnic data is not always readily available, this report includes an eGFR for both -Americans and non- Americans. The National Kidney Disease Education Program (NKDEP) does not endorse the use of the MDRD equation for patients that are not between the ages of 18 and 70, are , have extremes of body size, muscle mass, or nutritional status, or are non- or non-. According to the National Kidney Foundation, irrespective of diagnosis, the stage of the disease is based on the level of kidney function: Stage Description GFR(mL/min/1.73 m(2)) 1 Kidney damage with normal or decreased GFR 90 2 Kidney damage with mild decrease in GFR 60-89 3 Moderate decrease in GFR 30-59 4 Severe decrease in GFR 15-29 5 Kidney failure <15 (or dialysis) 53 PT IS FASTING 54 HDL Interpretation: Undesirable: High Risk: Less than 40 MG/DL Desirable: Low Risk: Greater than 60 MG/DL 55 LDL Interpretation: Low Risk Optimal Level: LDL Less than 100 MG/DL Near or Above Optimal: LDL 100-129 MG/DL Borderline High Risk: LDL 130-159 MG/DL High Risk: LDL 160-189 MG/DL Very High Risk: LDL Greater than 189 MG/DL 56 Anion gap measurement may be of limited value in the presence of any alkalosis, especially in a combined acid base disorder. . 57 A metabolite of Naproxen, O-desmethylnaproxen, has been shown to interfere with the Jendrassik-Lucien method for measuring total bilirubin. Samples from patients who have taken Naproxen have shown spurious elevation in total bilirubin levels. 58 Because ethnic data is not always readily available, this report includes an eGFR for both -Americans and non- Americans. The National Kidney Disease Education Program (NKDEP) does not endorse the use of the MDRD equation for patients that are not between the ages of 18 and 70, are , have extremes of body size, muscle mass, or nutritional status, or are non- or non-. According to the National Kidney Foundation, irrespective of diagnosis, the stage of the disease is based on the level of kidney function: Stage Description GFR(mL/min/1.73 m(2)) 1 Kidney damage with normal or decreased GFR 90 2 Kidney damage with mild decrease in GFR 60-89 3 Moderate decrease in GFR 30-59 4 Severe decrease in GFR 15-29 5 Kidney failure <15 (or dialysis) 59 CHOLESTEROL INTERPRETATION: Desirable: Less than 200 MG/DL Borderline-High Risk: 200-239 MG/DL High-Risk: 240 MG/DL and over 60 HDL INTERPRETATION: Undesirable: High Risk: Less than 40 MG/DL Desirable: Low Risk: Greater than 60 MG/DL 61 LDL INTERPRETATION: Low Risk Optimal Level: LDL Less than 100 MG/DL Near or Above Optimal: LDL 100-129 MG/DL Borderline High Risk: LDL 130-159 MG/DL High Risk: LDL 160-189 MG/DL Very High Risk: LDL Greater than 189 MG/DL 62 A metabolite of Naproxen, O-desmethylnaproxen, has been shown to interfere with the Jendrassik-Lucien method for measuring total bilirubin. Samples from patients who have taken Naproxen have shown spurious elevation in total bilirubin levels. 63 Please note updated reference range, effective 02/08/10 64 Anion gap measurement may be of limited value in the presence of any alkalosis, especially in a combined acid base disorder. . 65 A metabolite of Naproxen, O-desmethylnaproxen, has been shown to interfere with the Jendrassik-Dania method for measuring total bilirubin. Samples from patients who have taken Naproxen have shown spurious elevation in total bilirubin levels. 66 Because ethnic data is not always readily available, this report includes an eGFR for both -Americans and non- Americans. The National Kidney Disease Education Program (NKDEP) does not endorse the use of the MDRD equation for patients that are not between the ages of 18 and 70, are , have extremes of body size, muscle mass, or nutritional status, or are non- or non-. According to the National Kidney Foundation, irrespective of diagnosis, the stage of the disease is based on the level of kidney function: Stage Description GFR(mL/min/1.73 m(2)) 1 Kidney damage with normal or decreased GFR 90 2 Kidney damage with mild decrease in GFR 60-89 3 Moderate decrease in GFR 30-59 4 Severe decrease in GFR 15-29 5 Kidney failure <15 (or dialysis) 67 Serologic response to B. burgdorferi infection is not detected, but cannot rule out early infection during which low or undetectable antibody levels to B. burgdorferi may be present. If clinically indicated, a new serum specimen should be submitted in 7-14 days. Test Performed by: [facility] Dpt of Lab Med and Pathology [address] [place] [address] Returns Supervisor: Pancho Linares III, M.D. 68 CHOLESTEROL INTERPRETATION: Desirable: Less than 200 MG/DL Borderline-High Risk: 200-239 MG/DL High-Risk: 240 MG/DL and over 69 HDL INTERPRETATION: Undesirable: High Risk: Less than 40 MG/DL Desirable: Low Risk: Greater than 60 MG/DL 70 LDL INTERPRETATION: Low Risk Optimal Level: LDL Less than 100 MG/DL Near or Above Optimal: LDL 100-129 MG/DL Borderline High Risk: LDL 130-159 MG/DL High Risk: LDL 160-189 MG/DL Very High Risk: LDL Greater than 189 MG/DL 71 A metabolite of Naproxen, O-desmethylnaproxen, has been shown to interfere with the Jendrassik-Dania method for measuring total bilirubin. Samples from patients who have taken Naproxen have shown spurious elevation in total bilirubin levels. 72 Please note updated reference range, effective 02/08/10 73 CHOLESTEROL INTERPRETATION: Desirable: Less than 200 MG/DL Borderline-High Risk: 200-239 MG/DL High-Risk: 240 MG/DL and over 74 HDL INTERPRETATION: Undesirable: High Risk: Less than 40 MG/DL Desirable: Low Risk: Greater than 60 MG/DL 75 LDL INTERPRETATION: Low Risk Optimal Level: LDL Less than 100 MG/DL Near or Above Optimal: LDL 100-129 MG/DL Borderline High Risk: LDL 130-159 MG/DL High Risk: LDL 160-189 MG/DL Very High Risk: LDL Greater than 189 MG/DL 76 A metabolite of Naproxen, O-desmethylnaproxen, has been shown to interfere with the Jendrassik-Dania method for measuring total bilirubin. Samples from patients who have taken Naproxen have shown spurious elevation in total bilirubin levels. 77 Please note updated reference range, effective 02/08/10 Procedures Date CPT Code Description Status 07/29/2016 Colonoscopy Completed 04/22/2016 Mammogram Completed 05/26/2013 Mammogram Completed 05/04/2012 Mammogram Completed 04/22/2012 Mammogram Completed 04/14/2012 Mammogram Completed 10/02/2011 Mammogram Completed 10/30/2009 06633 EKG Tracing & Interpretation Completed 08/05/2008 Mammogram Completed 12/30/2007 06616 EKG Tracing & Interpretation Completed 12/30/2007 00664 EKG Tracing & Interpretation Completed 12/08/2007 39878 EKG Tracing & Interpretation Completed 12/08/2007 54900 EKG Tracing & Interpretation Completed 06/17/2007 47296 Biopsy Of Vulva One Lesion (Separate Procedure) Completed 06/09/2007 26592 EKG Tracing & Interpretation Completed Encounters Type Date Location Provider CPT E/M Dx Office Visit 08/28/2017 [facility] [place] [address] H05.012 1:40p [facility] Office Visit 07/04/2017 [facility] [place] [address] S16.1xxA 2:40p [facility] Office Visit 04/18/2017 [facility] Azul Kirkpatrick N.P. 26954 Z00.01 1:20p [facility] Z12.31 E03.9 E78.00 F31.9 F17.210 Office Visit 04/15/2016 1:40p [facility] Medicine Azul Kirkpatrick N.P. 82284 Z00.01 - [place] Z12.31 E78.0 E03.9 F31.9 R94.4 F17.210 L90.0 B37.2 Office Visit 06/22/2015 2:40p [facility] Joanne Goldberg 97354 R73.01 - Jennifer Lorenzo Office Visit 04/13/2015 3:40p [facility] Joanne Goldberg 52312 Z00.00 - Jennifer Lorenzo E78.5 R73.01 Z12.11 Z12.31 V04.81 Z23 Office Visit 11/16/2014 2:20p [facility] Azul Kirkpatrick, N.P. 27967 V72.31 - Jim Thorpe 305.1 616.10 Office Visit 10/26/2014 11:40a [facility] Azul Kirkpatrick, N.P. 68774 272.4 - Jim Thorpe Office Visit 09/30/2013 1:20p [facility] Joanne Goldberg 69038 V70.0 - Jennifer Lorenzo V72.31 054.19 244.9 Office Visit 09/28/2013 8:40a [facility] Azul Kirkpatrick, N.P. 80289 686.9 - Jim Thorpe Office Visit 09/24/2012 1:20p [facility] Joanne Goldberg 69657 V70.0 - Jennifer Lorenzo V72.31 V76.2 790.4 847.0 V76.10 Office Visit 04/20/2012 11:20a [facility] Joanne Goldberg 62903 793.80 - Jennifer Lorenzo V04.81 Office Visit 04/13/2012 2:30p [facility] Rissa Cheng M.D. 02382 346.91 [facility] 840.8 Office Visit 11/11/2011 11:40a [facility] Joanne Goldberg 44541 E906.4 - Jennifer Lorenzo 709.8 790.4 Office Visit 09/24/2011 1:20p [facility] Joanne Goldberg 33969 V70.0 - Jennifer Lorenzo V72.31 V76.10 305.1 272.4 244.9 780.50 v03.82 Office Visit 07/23/2011 4:20p [facility] Joanne Yusuf, 00835 780.60 - Jim Thorpe M.D. Office Visit 07/19/2011 8:40a DO Not Use Azul Varn, N.P. 09057 780.60 [employer]Jim Thorpe Office Visit 06/25/2011 2:20p DO Not Use Azul Varn, N.P. 61461 695.3 [employer]Jim Thorpe Office Visit 05/20/2011 4:20p DO Not Use Azul Varn, N.P. 23051 704.8 [employer]Jim Thorpe Office Visit 04/09/2011 11:00a DO Not Use Azul Varn, N.P. 27947 782.1 [employer]Jim Thorpe Office Visit 10/01/2010 10:15a DO Not Use Azul Varn, N.P. 45016 461.9 [employer]Jim Thorpe Office Visit 07/06/2010 3:15p DO Not Use Joanne Goldberg, 81741 790.4 [employer]Jim Thorpe M.D. 272.4 305.1 Office Visit 10/30/2009 10:00a DO Not Use Anna Huerta, 65866 V72.31 [employer]Jim Thorpe M.D. 272.4 244.9 Office Visit 05/22/2009 9:00a DO Not Use [employer] Ryann Diehl, 66353 724.2 M.D., FACP Office Visit 05/18/2009 9:30a DO Not Use [employer]pe Ryann Diehl, 47390 682.2 M.D., FACP V04.81 Office Visit 05/02/2009 11:30a DO Not Use Anna Huerta, 02167 794.8 [employer]Jim Thorpe M.D. 272.4 Office Visit 09/15/2008 1:00p DO Not Use Anna Huerta, 64113 272.4 [employer]Jim Thorpe M.D. 244.9 790.21 Office Visit 06/15/2008 3:00p DO Not Use Anna Huerta, 71766 V72.31 [employer]Jim Thorpe M.D. 272.4 244.9 311 V04.81 Office Visit 05/09/2008 3:00p DO Not Use RadAnna higginbotham, 30478 959.7 [employer]Jim Thorpe M.D. Office Visit 04/07/2008 3:45p DO Not Use RadAnna higginbotham, 38757 272.4 [employer]Jim Thorpe M.D. Office Visit 03/22/2008 3:45p DO Not Use RadAnna higginbotham, 06038 724.2 [employer]Jim Thorpe M.D. Office Visit 01/05/2008 4:00p DO Not Use RadAnna higginbotham, 37065 782.3 [employer]Jim Thorpe M.D. Office Visit 12/30/2007 11:30a DO Not Use RadAnna higginbotham, 55589 782.3 [employer]Jim Thorpe M.D. 786.05 Office Visit 12/08/2007 10:30a DO Not Use Anna Huerta, 27166 V72.84 [employer]Jim Thorpe M.D. 786.2 Office Visit 09/21/2007 9:45a DO Not Use RadAnna higginbotham, 75377 959.6 [employer]Jim Thorpe M.D. Office Visit 09/09/2007 1:15p DO Not Use Anna Huerta, 53691 244.9 [employer]Jim Thorpe M.D. 272.4 Office Visit 06/09/2007 1:15p DO Not Use RadAnna higginbotham, 96791 V72.31 [employer]Jim Thorpe M.D. 272.4 244.9 558.9 296.7 V04.81 Office Visit 04/08/2007 11:00a DO Not Use RadAnna higginbotham, 23673 244.9 [employer]Jim Thorpe M.D. 296.7 Office Visit 01/27/2007 10:00a DO Not Use [employer] Thorpe Azul Kirkpatrick, 16369 486 N.P. Office Visit 01/20/2007 8:30a DO Not Use [employer] Thorpe Azul Kirkpatrick, 03514 466.0 N.P. 702.0 Office Visit 11/14/2006 2:15p DO Not Use RadAnna higginbotham, 38904 724.2 [employer]Jim Thorpe M.D. Office Visit 10/23/2006 2:00p DO Not Use RadAnna higginbotham, 51569 724.2 [employer]Jim Thorpe M.D. 724.6 Office Visit 10/14/2006 2:00p DO Not Use RadAnna higginbotham, 57427 724.2 [employer]Jim Thorpe M.D. Office Visit 10/06/2006 3:30p DO Not Use RadAnna higginbotham, 08061 724.2 [employer]Jim Thorpe M.D. 722.52 Office Visit 07/31/2006 12:15p DO Not Use [employer] [facility]pe Ryann Diehl M.D., 88017 466.0 FACP Office Visit 06/30/2006 4:15p DO Not Use [employer] Thorpe Azul Kirkpatrick, 92484 528.9 N.P. Plan of Care Future Appointment(s):10/31/2017 10:00 am - Pool Thomas MD at [facility] Uavevvenvlq27/03/2018 1:00 pm - Azul Kirkpatrick N.P. at [facility] - Wchtucmdj17/12/2018 - Kj Boyd NPJ06.9 Acute upper respiratory infection, unspecifiedNew Medication:Amoxicillin/Clavulanate Potassium 875-125 mgComments: Your symptoms are consistent with a viral upper respiratory infection. I recommend treating symptomatically. Drink plenty of fluids and try to rest as much as possible. If your symptoms worsen over theweekend start the antibiotic.M54.9 Dorsalgia, unspecifiedNew Medication:Baclofen 10 mgTramadol HCL 50 mgNew Therapy:Physical TherapyComments:Continue using the heat/ice as tolerated.Start taking the aleve 440mg twice daily for the next few days. Try using the muscle relaxant. This may make you tired. Use the pain medication sparingly.
[2017-11-11 14:57] VITALS: BP 122/86
--- NOTE | 2017-11-11 15:17 | UC ---
Throat Pain/Nasal Alfredo HPI - HPI Summary HPI Summary: Pt presents with sinus congestion and sore throat. Her sinus symptoms started about 2 weeks ago and seem to be improving. She saw her Kj Oliver and was given an rx for Augmentin as she has a history of "silent sinus infections" and has a metal plate in her sinuses due to a past infection. She did not take the augmentin as her symptoms improved in 2-3 days after. However, 4 days ago she started to have a sore throat which has gotten progressively worse. Has not been taking anything OTC. Denies fever, chills, cough, SOB, chest pain, abdominal pain. - History of Current Complaint Chief Complaint: UCGeneralIllness Stated Complaint: SORE THROAT Hx Obtained From: Patient Hx Last Menstrual Period: 10/09/17 Onset/Duration: Gradual Onset Severity: Moderate Pain Intensity: 5 Pain Scale Used: 0-10 Numeric - Allergies/Home Medications Allergies/Adverse Reactions: Allergies Allergy/AdvReac Type Severity Reaction Status Date / Time Penicillins Allergy Rash Verified 11/11/17 14:44 bee venom Allergy Hives Uncoded 07/29/16 11:59 Home Medications: Home Medications Atorvastatin* [Lipitor*] 10 mg PO BEDTIME 11/11/17 [History Confirmed 11/11/17] QUEtiapine TAB* [SEROquel TAB*] 150 mg PO BEDTIME 11/11/17 [History Confirmed ] PMH/Surg Hx/FS Hx/Imm Hx Endocrine History: Thyroid Disease, Dyslipidemia Cardiovascular History: Hypertension Psychological History: Depression, Bipolar Disorder - Surgical History Surgical History: Yes Surgery Procedure, Year, and Place: Silent sinus syndrome surgery in 2003 - Family History Known Family History: Positive: None - Social History Occupation: Employed Full-time Lives: With Family Alcohol Use: None Substance Use Type: None Smoking Status (MU): Heavy Every Day Tobacco Smoker Amount Used/How Often: 1 ppd Review of Systems Constitutional: Negative Skin: Negative Eyes: Negative ENT: Sore Throat Respiratory: Negative Cardiovascular: Negative Gastrointestinal: Negative Neurovascular: Negative Musculoskeletal: Negative Neurological: Negative Psychological: Negative All Other Systems Reviewed And Are Negative: Yes Physical Exam - Summary Physical Exam Summary: GENERAL: NAD. WDWN. No pain distress. SKIN: No rashes, sores, ulcers, masses, lesions. HEENT: Head: AT/NC Eyes: Conjunctiva clear without inflammation or discharge. Ears: Hearing grossly normal. TMs intact, no bulging, erythema, or edema. Nose: Nasal mucosa pink and moist. NTTP maxillary and frontal sinus. Throat: Posterior oropharynx moderate erythema and 2+ tonsillar enlargement. No exudates. Uvula midline. No hoarse voice or muffled voice. NECK: Supple. Nontender. No lymphadenopathy. CHEST: CTAB. No r/r/w. No accessory muscle use. Breathing comfortably and in no distress. CV: RRR. Without m/r/g. Pulses intact. Brisk cap refill. NEURO: Alert. CN II-XII grossly intact. PSYCH: Age appropriate behavior. Triage Information Reviewed: Yes Vital Signs: Initial Vital Signs Temp 99 F 11/11/17 14:48 Pulse 91 11/11/17 14:48 Resp 16 11/11/17 14:48 BP 122/86 11/11/17 14:48 Pulse Ox 97 11/11/17 14:48 Throat Pain/Nasal Course/Dx - Course Course Of Treatment: POC strep negative. Given her symptoms and hx of "silent sinus syndrome" - will rx anbx. I will, however, avoid PCN as she takes this often for sinus infections and go with second line therapy - azithromycin. - Differential Dx/Diagnosis Provider Diagnoses: Pharyngitis Discharge - Sign-Out/Discharge Documenting (check all that apply): Discharge/Admit/Transfer - Discharge Plan Condition: Stable Disposition: HOME Prescriptions: Azithromycin TAB* [Zithromax TAB (Z-SILKE) 250 mg #6 tabs] 2 tab PO .TODAY, THEN 1 DAILY #1 silke Patient Education Materials: Pharyngitis (ED) Referrals: Joanne Goldberg MD [Primary Care Provider] - Additional Instructions: If you develop a fever, shortness of breath, chest pain, new or worsening symptoms - please call your PCP or go to the ED. - Billing Disposition and Condition Condition: STABLE Disposition: HOME
== END 2017-11-11 15:40 | disposition home or self-care (01) ==
LOC: UCEAST 14:13
DX: J02.9 Acute pharyngitis, unspecified (principal); F17.200 Nicotine dependence, unspecified, uncomplicated; Z88.0 Allergy status to penicillin
CPT/HCPCS: 87651; 99211; G0463

== ENCOUNTER 2019-07-05 15:23 | Emergency (ER) | payer MEDICARE, OTHER ==
[2019-07-05 15:32] VITALS: BP 128/88
== END 2019-07-05 16:16 | disposition left against medical advice (07) ==
LOC: ED 15:23
DX: R42 Dizziness and giddiness (principal); R41.0 Disorientation, unspecified; Z53.21 Procedure and treatment not carried out due to patient leaving prior to being seen by health care provider